=== PATIENT | female | born 1955 | race Caucasian/White ===

== ENCOUNTER → 2023-07-18 | Outpatient (CLI) | payer MEDICAID | END | disposition home or self-care (01) | LOC: LAB 11:44 | PROVIDERS: ATTEND Family Medicine | DX: Z12.11 Encounter for screening for malignant neoplasm of colon (principal) | CPT/HCPCS: 82270 ==

== ENCOUNTER → 2023-08-01 | Outpatient (CLI) | payer MEDICAID | END | disposition home or self-care (01) | LOC: LAB 08:48 | PROVIDERS: ATTEND Family Medicine | DX: Z12.11 Encounter for screening for malignant neoplasm of colon (principal); Z11.1 Encounter for screening for respiratory tuberculosis; Z00.01 Encounter for general adult medical examination with abnormal findings; Z13.810 Encounter for screening for upper gastrointestinal disorder | CPT/HCPCS: 82270 ==

== ENCOUNTER → 2024-07-18 | Outpatient (CLI) | payer MEDICAID ==
[2024-07-18 11:23] LABS: Triglycerides 125 mg/dL (< 150)
[2024-07-18 11:25] LABS: Cholesterol 191 mg/dL (< 200); HDL Cholesterol 47 mg/dL (40-59)
[2024-07-18 11:31] LABS: LDL Cholesterol 142 mg/dL (< 100)
== END | disposition home or self-care (01) ==
LOC: LAB 10:32
PROVIDERS: ATTEND Family Medicine
DX: E78.5 Hyperlipidemia, unspecified (principal); E55.9 Vitamin D deficiency, unspecified; E88.819 Insulin resistance, unspecified
CPT/HCPCS: 36415; 80061; 82306; 82947; 83036

== ENCOUNTER → 2024-08-20 | Outpatient (CLI) | payer MEDICAID | END | disposition home or self-care (01) | LOC: LAB 13:57 | PROVIDERS: ATTEND Family Medicine | DX: Z12.11 Encounter for screening for malignant neoplasm of colon (principal) | CPT/HCPCS: 82270 ==

== ENCOUNTER → 2024-10-31 | Outpatient (CLI) | payer MEDICAID ==
[2024-10-31 09:43] LABS: Urine Bacteria None Seen /hpf (None Seen)
[2024-10-31 10:08] LABS: Basophils # (auto) 0.1 10 ^3/uL (0-0.2); Basophils % (auto) 0.8 % (0.0-2.0); Eosinophils # (auto) 0.3 10 ^3/uL (0-0.8); Eosinophils % (auto) 4.4 % (0.0-7.0); Hemoglobin 14.6 g/dL (12.2-16.2); Lymphocytes # (auto) 1.5 10 ^3/uL (0.4-5.4); Lymphocytes % (auto) 23.4 % (10.0-50.0); Mean Corpuscular Hemoglobin 30.3 pg (28.0-32.0); Mean Corpuscular Hgb Conc. 34.6 g/dL (32.0-36.0); Mean Corpuscular Volume 87.5 fL (80.0-100.0); Monocytes # (auto) 0.4 10 ^3/uL (0-1.3); Monocytes % (auto) 6.5 % (0.0-12.0); Neutrophils # (auto) 4.3 10 ^3/uL (1.6-8.6); Neutrophils % (auto) 64.9 % (37.0-80.0); Nucleated Red Blood Cells % 0.3 %; Platelet Count (auto) 279 10^3/uL (140-450); Red Cell Distribution Width 13.1 % (11.8-14.3); White Blood Cell 6.6 10^3/uL (4.4-10.8)
[2024-10-31 10:11] LABS: Alanine Aminotransferase 19 U/L (7-40); Albumin 4.6 g/dL (3.2-4.8); Alkaline Phosphatase 100 U/L (46-116); Anion Gap 7 (5-15); Aspartate Aminotransferase 18 U/L (13-40); BUN/Creatinine Ratio 18.6 (10.0-20.0); Bilirubin, Total 0.6 mg/dL (0.2-1.0); Blood Urea Nitrogen 11 mg/dL (9-23); Calcium 10.3 mg/dL (8.7-10.4); Carbon Dioxide 30 mmol/L (20-31); Chloride 106 mmol/L (98-107); Cholesterol 185 mg/dL (< 200); HDL Cholesterol 42 mg/dL (40-59); Potassium 4.3 mmol/L (3.5-5.1); Sodium 143 mmol/L (136-145); Triglycerides 139 mg/dL (< 150)
[2024-10-31 10:12] LABS: Glucose 110 mg/dL (74-106); LDL Cholesterol 132 mg/dL (< 100)
[2024-10-31 10:18] LABS: Urine Blood TRACE /uL (Negative); Urine Clarity Clear (Clear); Urine Color Light-Yellow (Yellow); Urine Mucus FEW (None Seen); Urine Protein, UAD Negative (Negative); Urine Specific Gravity 1.016 (1.001-1.035); Urine Squamous Epithelial Cell FEW /hpf (<5); Urine Urobilinogen Normal (Negative); Urine WBC 2 /HPF (0-5); Urine pH 6.5 (5.0-9.0)
[2024-10-31 10:52] LABS: Uric Acid 7.3 mg/dL (3.1-7.8)
== END | disposition home or self-care (01) ==
LOC: LAB 09:29
PROVIDERS: ATTEND Family Medicine
DX: I10 Essential (primary) hypertension (principal); E78.5 Hyperlipidemia, unspecified; E55.9 Vitamin D deficiency, unspecified; E88.819 Insulin resistance, unspecified; E66.09 Other obesity due to excess calories; L02.93 Carbuncle, unspecified; Z12.11 Encounter for screening for malignant neoplasm of colon; Z12.4 Encounter for screening for malignant neoplasm of cervix; Z00.01 Encounter for general adult medical examination with abnormal findings
CPT/HCPCS: 36415; 80053; 80061; 81001; 83036; 84443; 84550; 85025

== ENCOUNTER → 2025-02-27 | Outpatient (CLI) | payer MEDICAID ==
[2025-02-27 11:08] LABS: Urine Protein, UAD Negative (Negative)
[2025-02-27 11:29] LABS: Alanine Aminotransferase 13 U/L (7-40); Albumin 4.4 g/dL (3.2-4.8); Alkaline Phosphatase 97 U/L (46-116); Anion Gap 7 (5-15); BUN/Creatinine Ratio 17.9 (10.0-20.0); Blood Urea Nitrogen 10 mg/dL (9-23); Calcium 9.9 mg/dL (8.7-10.4); Carbon Dioxide 29 mmol/L (20-31); Chloride 105 mmol/L (98-107); Cholesterol 186 mg/dL (< 200); Glucose 100 mg/dL (74-106); Potassium 4.2 mmol/L (3.5-5.1); Sodium 141 mmol/L (136-145); Total Protein 7.1 g/dL (5.7-8.2); Triglycerides 101 mg/dL (< 150)
[2025-02-27 11:30] LABS: Bilirubin, Total 0.5 mg/dL (0.2-1.0); HDL Cholesterol 46 mg/dL (40-59)
== END | disposition home or self-care (01) ==
LOC: LAB 09:53
PROVIDERS: ATTEND Family Medicine
DX: E78.5 Hyperlipidemia, unspecified (principal); E55.9 Vitamin D deficiency, unspecified; E66.09 Other obesity due to excess calories; R73.03 Prediabetes
CPT/HCPCS: 36415; 80053; 80061; 81001; 82306; 83036